=== PATIENT | female | born 1970 | race Hispanic/Latino ===

== ENCOUNTER 2019-03-04 13:37 | Outpatient (CLI) | payer BC ==
--- NOTE | 2019-03-04 14:56 | Mammography Report ---
BILATERAL BREAST DIAGNOSTIC MAMMOGRAM WITH CAD AND IMPLANT-DISPLACED VIEWS TARGETED LEFT BREAST ULTRASOUND HISTORY: Left lower breast pain and tenderness for 2 months. COMPARISON: 10/13/2015 FINDINGS: Mammographic density: Heterogeneously dense breast parenchymal pattern which somewhat decreases the sensitivity of the evaluation Digital standard and implant-displaced CC and MLO views both breasts demonstrate no mass, architectur al distortion or suspicious calcifications. Bilateral subpectoral saline implants are in place. Targeted ultrasound of the left breast in the area of pain at 6:00 11 to 14 cm from the nipple demons trated normal fibroglandular structures. No mass, cyst or shadowing. IMPRESSION No mammographic evidence of malignancy. Negative targeted left breast ultrasound in the area of pain. If the clinical examination remains stable, recommend bilateral screening mammogram in approximately one year. BIRADS 2: Benign A negative mammogram should not delay biopsy if a clinically suspicious mass is present. Interpretation of this examination was rendered with the benefit of CAD analysis. Signer Name: Gaston Gómez MD Signed: 03/04/2019 2:52 PM Workstation Name: [id number]
== END 2019-03-04 13:38 | disposition home or self-care (01) ==
LOC: SPVWC 13:37
PROVIDERS: ATTEND Obstetrics & Gynecology
DX: N64.4 Mastodynia (principal); Z98.82 Breast implant status
CPT/HCPCS: 77066